=== PATIENT | female | born 1955 | race Caucasian/White ===

== ENCOUNTER 2018-06-09 15:38 | Emergency (ER) | payer OTHER ==
[~2018-06-09] VITALS: Ht 149.9 cm; Wt 102.5 kg
[2018-06-09 16:11] VITALS: BP 155/90
--- NOTE | 2018-06-09 16:14 | NUR ---
PT TRIAGED, GIVEN URINE CUP AND SENT TO ER LOBBY
[2018-06-09 16:52] LABS: BASOPHILS # (AUTO) 0.1 K/uL (0.00-0.22); BASOPHILS % (AUTO) 0.7 % (0.0-2.0); EOSINOPHILS # (AUTO) 0.1 K/uL (0-0.4); EOSINOPHILS % (AUTO) 0.4 % (0.0-4.0); HEMATOCRIT 44.1 % (36-48); HEMOGLOBIN 14.6 g/dL (12.0-16.0); LYMPHOCYTES # (AUTO) 2.2 K/uL (2.5-16.5); LYMPHOCYTES % (AUTO) 16.9 % (20.5-51.1); MEAN CORPUSCULAR HEMOGLOBIN 30 pg (27-31); MEAN CORPUSCULAR HGB CONC 33 g/dL (33-37); MONOCYTES # (AUTO) 0.9 K/uL (0.8-1.0); MONOCYTES % (AUTO) 7.1 % (1.7-9.3); NEUTROPHILS # (AUTO) 9.8 K/uL (1.8-7.7); NEUTROPHILS % (AUTO) 74.9 % (42.2-75.2); PLATELET COUNT (AUTO) 190 K/uL (140-450); RED BLOOD CELL COUNT(AUTO) 4.85 MIL/uL (4.20-5.40); RED CELL DISTRIBUTION WIDTH 14.2 % (11.6-13.7); WHITE BLOOD COUNT (AUTO) 13.1 K/uL (4.8-10.8)
[2018-06-09 17:09] LABS: APPEARANCE,URINE HAZY (CLEAR); BILIRUBIN,URINE NEGATIVE (NEGATIVE); BLOOD, URINE NEGATIVE (NEGATIVE); COLOR,URINE DARK YELLOW (YELLOW); LEUKOCYTE ESTERASE ,URINE TRACE (NEGATIVE); NITRITE, URINE NEGATIVE (NEGATIVE); UGLUCOSE NEGATIVE (NEGATIVE)
[2018-06-09 17:14] LABS: ANION GAP 15.9 (8-16); CARBON DIOXIDE 24.6 mmol/L (21-32); CREATININE 0.8 mg/dL (0.6-1.3); POTASSIUM 3.5 mmol/L (3.5-5.1)
[2018-06-09 17:21] LABS: ALBUMIN 3.6 g/dL (3.4-5.0)
[2018-06-09 17:50] LABS: RBC,URINE 0 /HPF (0-5); WBC,URINE 0-5 /HPF (0-5)
--- NOTE | 2018-06-09 19:32 | NUR ---
PT TAKEN TO BED 7
--- NOTE | 2018-06-09 19:44 | NUR ---
PT C/O BILAT LOWER QUADRANT 10/10 CONTINUOUS ABD PAIN, ACHING RADIATING TO R FLANK SINCE YESTERDAY. SAW PCP AND WAS TOLD IT MAY BE KIDNEY STONES. DENIES N/V. ADMITS DIARRHEA. LBM TODAY. DENIES DYSURIA. SEES A [employer] INVESTIGATOR FOR CHRONIC PAIN MANAGEMENT. ABD SOFT, ROUND, NONTENDER. BOWLE SOUNDS PRESENT X 4 QUADRANTS, NORMOACTIVE. HX---DM, FIBROMYALGIA, HTN, ANXIETY
--- NOTE | 2018-06-09 20:08 | NUR ---
PT TAKEN TO RAD
--- NOTE | 2018-06-09 20:27 | NUR ---
PT RETURN FROM RAD
--- NOTE | 2018-06-09 20:53 | NUR ---
Dr. Bella evaluating patient at bedside.
[2018-06-09] MEDS ORDERED: LEVOFLOXACIN 500 MG TAB PO ONE (21:10)
[2018-06-09] MEDS ORDERED: KETOROLAC 60 MG/2 ML VIAL IM ONE (21:10)
[2018-06-09] MEDS ORDERED: ONDANSETRON 4 MG ODT PO ONE (21:10)
[2018-06-09 21:38] VITALS: BP 145/75
--- NOTE | 2018-06-09 21:38 | NUR ---
Patient discharged with v/s stable. Written and verbal after care instructions given and explained. Patient alert, oriented and verbalized understanding of instructions. Ambulatory with steady gait. All questions addressed prior to discharge. ID band removed. Patient advised to follow up with PMD. Rx of ZOFRAN, MOTRIN, SULFASALAZINE, TRAMADOL, CIPROFLOXACIN given. Patient educated on indication of medication including possible reaction and side effects. Opportunity to ask questions provided and answered.
== END 2018-06-09 21:38 | disposition home or self-care (01) ==
LOC: MED 15:38
DX: K57.92 Diverticulitis of intestine, part unspecified, without perforation or abscess without bleeding (principal); E11.9 Type 2 diabetes mellitus without complications; I10 Essential (primary) hypertension; F41.9 Anxiety disorder, unspecified
CPT/HCPCS: 36415; 74176; 80053; 81001; 82150; 82948; 83690; 85025; 96372; 99284; J1885; Q0162